=== PATIENT | male | born 1965 | race Caucasian/White ===

== ENCOUNTER → 2018-03-19 | Outpatient (CLI) | payer OTHER | END | disposition home or self-care (01) | LOC: CFH 10:49 | DX: M79.671 Pain in right foot (principal); M25.774 Osteophyte, right foot; F17.200 Nicotine dependence, unspecified, uncomplicated | CPT/HCPCS: 93978 ==

== ENCOUNTER 2018-12-10 21:01 | Observation (INO) | payer SELFPAY ==
[~2018-12-10] VITALS: Ht 167.6 cm; Wt 83.6 kg
--- NOTE | 2018-12-10 21:20 | NUR ---
[facility] CALLED
--- NOTE | 2018-12-10 21:24 | NUR ---
PT PRESENTS TO ED WITH C/O BILATERAL CHEST PAIN RADIATING TO NECK STARTING THIS AM, PT DESCRIBES PAIN PRESSURE, CONSTANT, 8/10. PT DENIES N/V, DENIES SOB. ALL MONITORS IN PLACE. EKG TAKEN ON ARRIVAL IN TRIAGE, REVIEWED BY EDMD, [facility] IN PROGRESS. FAMILY AT BEDSIDE, UPDATED WITH POC. PT REPORTS LAST PO INTAKE WAS AT 1700 THIS PM, GE AND DAVID.
--- NOTE | 2018-12-10 21:25 | NUR ---
late entry for 2124: first EKG taken at 2104 in triage on arrival, second EKG taken at 2108, both reviewed by SARWAT.
[2018-12-10] MEDS ORDERED: SODIUM CHLORIDE FLUSH 10ML SYR IVF ONE (21:30)
[2018-12-10] MEDS ORDERED: NITROGLYCERIN SINGLE TAB 0.4 MG SL PRN (21:30)
[2018-12-10] MEDS ORDERED: ASPIRIN 81 MG TABLET CHEW PO ONE (21:30)
--- NOTE | 2018-12-10 21:35 | NUR ---
PT A&O, RESPS EVEN AND UNLABORED. PT REPORTS CP STILL LEVEL 8/10 S/P NITRO. PT NSR RATE 80'S ON MONTIOR, NO ECTOPY.
[2018-12-10 21:37] LABS: BASOPHILS # (AUTO) 0.05 x10^3/uL (0-0.1); BASOPHILS % (AUTO) 0 % (0-1); EOSINOPHILS # (AUTO) 0.31 x10^3/uL (0-0.4); EOSINOPHILS % (AUTO) 2 % (1-7); LYMPHOCYTES # (AUTO) 2.99 x10^3/uL (1-3.4); LYMPHOCYTES % (AUTO) 20 % (22-44); MD NO; MEAN CORPUSCULAR HEMOGLOBIN 30.8 pg (27.5-34.5); MEAN CORPUSCULAR HGB CONC 34.8 g/dL (33.2-36.2); MEAN CORPUSCULAR VOLUME 88.6 fL (81-97); MEAN PLATELET VOLUME 7.9 fL (7.4-10.4); MONOCYTES # (AUTO) 1.24 x10^3/uL (0.2-0.8); MONOCYTES % (AUTO) 8 % (2-9); NEUTROPHILS # (AUTO) 10.18 x10^3/uL (1.8-6.8); NEUTROPHILS % (AUTO) 69 % (42-75); PLATELET COUNT 227 x10^3/uL (130-400)
--- NOTE | 2018-12-10 21:40 | NUR ---
CONCETTA BARRY AT BEDSIDE TO REASSESS PT . MD INFORMED PT REPORTS CP UNCHANGED S/P NITRO.
--- NOTE | 2018-12-10 21:47 | NUR ---
DR ACHARYA HERE TO SEE PT.
[2018-12-10 21:48] LABS: INTERNATIONAL NORMALIZED RATIO 0.96 (0.93-1.1); PROTHROMBIN TIME 10.1 Seconds (9.6-11.5)
[2018-12-10 21:51] LABS: ALANINE AMINOTRANSFERASE 26 U/L (12-78); ALBUMIN 3.9 g/dL (3.4-5.0); ANION GAP 6 mmol/L (5-15); CALCIUM 8.3 mg/dL (8.5-10.1); CHLORIDE 109 mmol/L (98-107); CREATININE 1.29 mg/dL (0.7-1.3)
[2018-12-10] MEDS ORDERED: FENTANYL PF 100 MCG/2ML ONE (21:52)
[2018-12-10] MEDS ORDERED: MIDAZOLAM 1 MG/ML, 5ML ONE (21:52)
[2018-12-10] MEDS ORDERED: TICAGRELOR 90 MG TABLET ONE (21:52)
[2018-12-10] MEDS ORDERED: VERAPAMIL 2.5 MG/ML, 2ML ONE (21:52)
[2018-12-10] MEDS ORDERED: LIDOCAINE-MPF 1%, 5ML ONE (21:53)
[2018-12-10] MEDS ORDERED: BIVALIRUDIN 250 MG ONE (21:53)
--- NOTE | 2018-12-10 21:55 | NUR ---
pt taken to chemical laboratory tester, report given to chemical laboratory tester MARCIE Minaya at bedside. Addendum: 12/10/18 at 2208 by CHRISTINE pt taken to chemical laboratory tester, report given to chemical laboratory tester MARCIE Minaya at bedside. chemical laboratory tester MARCIE thomas last PO intake was at 1700, negrita and vikram.
[2018-12-10 21:56] LABS: ALKALINE PHOSPHATASE 78 U/L (45-117); BILIRUBIN,TOTAL 0.6 mg/dL (0.2-1.0); TROPONIN I < 0.015 ng/mL (0.000-0.045)
[2018-12-10] MEDS ORDERED: ASPIRIN 81 MG TABLET CHEW ONE (22:15)
[2018-12-10 22:58] VITALS: BP 114/79
[2018-12-10] MEDS ORDERED: ACETAMINOPHEN 325 MG TABLET PO PRN (23:30)
[2018-12-10] MEDS ORDERED: ONDANSETRON ODT 4 MG PO PRN (23:30)
[2018-12-10] MEDS: SODIUM CHLORIDE 0.9% 1,000 ML IV SCH ×2 (23:45→23:46)
[2018-12-11] MEDS ORDERED: OMNIPAQUE 350 MG/ML, 100ML BOTTLE ONE (00:30)
[2018-12-11 01:31] VITALS: BP 113/77
[2018-12-11 05:30] LABS: BASOPHILS # (AUTO) 0.05 x10^3/uL (0-0.1); BASOPHILS % (AUTO) 0 % (0-1); EOSINOPHILS # (AUTO) 0.32 x10^3/uL (0-0.4); EOSINOPHILS % (AUTO) 2 % (1-7); LYMPHOCYTES # (AUTO) 2.91 x10^3/uL (1-3.4); LYMPHOCYTES % (AUTO) 22 % (22-44); MD NO; MEAN CORPUSCULAR HEMOGLOBIN 30.9 pg (27.5-34.5); MEAN CORPUSCULAR HGB CONC 35.2 g/dL (33.2-36.2); MEAN CORPUSCULAR VOLUME 87.8 fL (81-97); MEAN PLATELET VOLUME 8.1 fL (7.4-10.4); MONOCYTES # (AUTO) 1.11 x10^3/uL (0.2-0.8); MONOCYTES % (AUTO) 9 % (2-9); NEUTROPHILS # (AUTO) 8.65 x10^3/uL (1.8-6.8); NEUTROPHILS % (AUTO) 66 % (42-75); PLATELET COUNT 185 x10^3/uL (130-400); RED BLOOD COUNT 5.04 x10^6/uL (4.38-5.82)
[2018-12-11 05:39] LABS: ANION GAP 7 mmol/L (5-15); CALCIUM 7.8 mg/dL (8.5-10.1); CHLORIDE 113 mmol/L (98-107)
[2018-12-11 05:40] LABS: CREATININE 1.08 mg/dL (0.7-1.3)
[2018-12-11 06:49] VITALS: BP 103/68
[2018-12-11] MEDS: SODIUM CHLORIDE 0.9% 1,000 ML IV SCH ×2 (07:45→07:59)
[2018-12-11] MEDS ORDERED: PANTOPRAZOLE 20MG TABLET PO SCH (09:30)
[2018-12-11] MEDS ORDERED: PANT20TA3 PO (12:56)
== END 2018-12-11 15:06 | disposition home or self-care (01) ==
LOC: ED 23:34 → EDIP 23:36 → 5SO 23:43
PROVIDERS: ADMIT Family Medicine; ATTEND Family Medicine
DX: R07.89 Other chest pain (principal); K21.9 Gastro-esophageal reflux disease without esophagitis; N17.9 Acute kidney failure, unspecified; F17.200 Nicotine dependence, unspecified, uncomplicated; Z82.49 Family history of ischemic heart disease and other diseases of the circulatory system; Z83.3 Family history of diabetes mellitus
CPT/HCPCS: 36415; 71045; 71275; 80048; 80053; 83880; 84484; 85025; 85610; 85730; 93005; 93306; 99284; G0378; J2250; J3010; J7030; Q9967; 93458; 99156; 99157; C1769; C1894; J0583; C1887